=== PATIENT | female | born 1990 | race African-American/Black ===

== ENCOUNTER 2019-01-08 16:47 | Emergency (ER) | payer OTHER ==
[~2019-01-08] VITALS: Ht 157.5 cm; Wt 102.1 kg
[2019-01-08 16:55] VITALS: BP 143/88
[2019-01-08] MEDS ORDERED: SULF1TAB24 PO (17:20)
[2019-01-08] MEDS ORDERED: MELO7.5T29 PO (17:20)
[2019-01-08] MEDS ORDERED: TRAM50TA PO (17:20)
--- NOTE | 2019-01-08 17:21 | PHYS DOC ---
Past History Past Medical History: No Pertinent History Past Surgical History: No Surgical History Smoking: Non-smoker Alcohol Use: Occasionally Drug Use: None Adult General Chief Complaint Chief Complaint: SKIN RASH/ABSCESS HPI HPI Patient is a 28-year-old female presents complaining of left-sided arm pit pain and swelling. This has been going on for the past week. There has been no drainage. Patient has a history of similar issues under her left breast as well as in her hip region. No relief with [id number] ibuprofen and warm compresses. No fever. Increased pain with palpation as well as movement of the arm. No trauma. No drainage.[] Review of Systems Review of Systems Constitutional: Denies fever or chills [] Eyes: Denies change in visual acuity, redness, or eye pain [] HENT: Denies nasal congestion or sore throat [] Respiratory: Denies cough or shortness of breath [] Cardiovascular: No chest pain or palpitations[] GI: Denies abdominal pain, nausea, vomiting, bloody stools or diarrhea [] : Denies dysuria or hematuria [] Musculoskeletal: Denies back pain or joint pain [] Integument: See history of present illness[] Neurologic: Denies headache, focal weakness or sensory changes [] Endocrine: Denies polyuria or polydipsia [] All other systems were reviewed and found to be within normal limits, except as documented in this note. Physical Exam Physical Exam Constitutional: Well developed, well nourished, no acute distress, non-toxic appearance. [] HENT: Normocephalic, atraumatic, bilateral external ears normal, oropharynx moist, no oral exudates, nose normal. [] Eyes: PERRLA, EOMI, conjunctiva normal, no discharge. [] Neck: Normal range of motion, no tenderness, supple, no stridor. [] Cardiovascular:Heart rate regular rhythm, no murmur [] Lungs & Thorax: Bilateral breath sounds clear to auscultation [] Abdomen: Examined. [] Skin: Warm, dry, no erythema, induration of the left axilla approximately 5 cm x 3 cm. There is no drainable abscess, no fluctuance.. [] Back: No tenderness, no CVA tenderness. [] Extremities: No tenderness, no cyanosis, no clubbing, ROM intact, no edema. [] Neurologic: Alert and oriented X 3, normal motor function, normal sensory function, no focal deficits noted. [] Psychologic: Affect normal, judgement normal, mood normal. [] EKG EKG [] Radiology/Procedures Radiology/Procedures [] Course & Med Decision Making Course & Med Decision Making Pertinent Labs and Imaging studies reviewed. (See chart for details) Medical decision making: Patient appears to have cellulitis at this time, no drainable abscesses appreciated. Will start patient on oral antibiotics. She may need follow-up with surgery given the location within the axilla for possible hidradenitis suppurativa[] Dragon Disclaimer Dragon Disclaimer This electronic medical record was generated, in whole or in part, using a voice recognition dictation system. Departure Departure: Impression: Primary Impression: Cellulitis Disposition: HOME, SELF-CARE Condition: IMPROVED Referrals: VINCENZO LEGER (PCP) Follow-up in 2 days Patient Instructions: Cellulitis, Hidradenitis Suppurativa, Sweat Gland Abscess Additional Instructions: Follow-up with your regular doctor in 2 days. Apply warm compresses to the area at least 4 times a day for 15 minutes at a time. Take the medication as prescribed. Return to the ER if worsening discomfort or any other concerns. Scripts Tramadol Hcl (TRAMADOL HCL) 50 Mg Tablet 50 MG PO PRN Q6HRS PRN for PAIN, #20 TAB Prov: TAMEKA CAMPBELL DO 01/08/19 Meloxicam (MELOXICAM) 7.5 Mg Tablet 7.5 MG PO DAILY for PAIN, #20 TAB Prov: TAMEKA CAMPBELL DO 01/08/19 Sulfamethoxazole/Trimethoprim (BACTRIM DS TABLET) 1 Each Tablet 1 TAB PO BID for skin infection, #20 TAB Prov: TAMEKA CAMPBELL DO 01/08/19 Problem Qualifiers Primary Impression: Cellulitis Site of cellulitis: extremity Site of cellulitis of extremity: upper extremity Laterality: left Qualified Codes: L03.114 - Cellulitis of left upper limb TAMEKA CAMPBELL DO Jan 08, 2019 17:21
== END 2019-01-08 17:26 | disposition home or self-care (01) ==
LOC: ER 16:47
DX: L03.114 Cellulitis of left upper limb (principal)
CPT/HCPCS: 99283

== ENCOUNTER 2019-07-24 20:00 | Emergency (ER) | payer OTHER ==
[~2019-07-24] VITALS: Ht 160 cm; Wt 98.4 kg
[~2019-07-24 20:00] MED LIST: MELO7.5T29 PO; SULF1TAB24 PO; TRAM50TA PO
--- NOTE | 2019-07-24 20:04 | ED.ADGEN ---
Past History Past Medical History: No Pertinent History, GERD Past Medical History IUD Past Surgical History: No Surgical History Smoking: Non-smoker Alcohol Use: Occasionally Drug Use: None Adult General Chief Complaint Chief Complaint ".. I ve been hurting bad since 2;30 SAT. morning.. .. it just not gotten better..." HPI HPI Patient is a 28 year old female who presents with above hx and complaints generalized abd. pain. Nausea and Vomiting. Patient Follows at [facility]. No history of bad food. No history of travel. No family members have been overseas recently. No exposure to animals. History of trauma. Pain and vomiting started in epigastric and upper abdomen approximately 0100 hrs. On Thursday . The patient does have a history of GERD. Pain became acutely more severe tonight after eating pizza at 1800 hrs. Patient currently rates pain as 6 out of 10. Pain was 10 and then when her son jumped on the bed tonight. Patient no history of STDs. No current complaints of vaginal discharge. Review of Systems Review of Systems Constitutional: Denies fever or chills [] Eyes: Denies change in visual acuity, redness, or eye pain [] HENT: Denies nasal congestion or sore throat [] Respiratory: Denies cough or shortness of breath [] Cardiovascular: No additional information not addressed in HPI [] GI: Complaints of severe epigastric and abdominal pain, nausea, vomiting, . Denies bloody stools or diarrhea [] : Denies dysuria or hematuria [] Musculoskeletal: Denies back pain or joint pain [] Integument: Denies rash or skin lesions [] Neurologic: Denies headache, focal weakness or sensory changes [] Endocrine: Denies polyuria or polydipsia [] All other systems were reviewed and found to be within normal limits, except as documented in this note. Family History Family History Noncontributory presentation Current Medications Current Medications Current Medications Medications (Trade) Dose Ordered Sig/Nicole Start Time Stop Time Status Last Admin Dose Admin Ceftriaxone Sodium 1 gm/ Sodium Chloride 50 ml @ 100 mls/hr 1X ONCE 07/25/19 02:30 07/25/19 02:54 DC 07/25/19 02:00 100 MLS/HR Ceftriaxone Sodium (Rocephin Im) 1 gm 1X ONCE 07/25/19 01:00 07/25/19 01:01 DC Famotidine (Pepcid Vial) 20 mg 1X ONCE 07/24/19 22:00 07/24/19 22:01 DC 07/24/19 22:50 20 MG Info (Do NOT chart on this entry -- for MONITORING) 1 each PRN DAILY PRN 07/24/19 22:00 07/25/19 02:54 DC Iohexol (Omnipaque 240 Mg/ml) 30 ml 1X ONCE 07/24/19 22:00 07/24/19 22:01 DC 07/24/19 23:20 30 ML Iohexol (Omnipaque 300 Mg/ml) 75 ml 1X ONCE 07/24/19 22:00 07/24/19 22:01 DC 07/24/19 23:19 75 ML Lactated Ringer's 1,000 ml @ 1,000 mls/hr Q1H 07/24/19 22:00 07/24/19 22:59 DC 07/24/19 21:10 1,000 MLS/HR Metronidazole 100 ml @ 100 mls/hr 1X ONCE 07/25/19 01:00 07/25/19 01:59 DC 07/25/19 01:00 100 MLS/HR Morphine Sulfate (Morphine 10mg Syringe) 10 mg 1X ONCE 07/24/19 22:00 07/24/19 22:01 DC Multi-Ingredient Mouthwash/Gargle (Gi Cocktail) 20 ml 1X ONCE 07/24/19 22:00 07/24/19 22:01 DC 07/24/19 22:40 20 ML Ondansetron HCl (Zofran) 8 mg 1X ONCE 07/24/19 22:00 07/24/19 22:01 DC Allergies Allergies Allergies Coded Allergies Type Severity Reaction Last Updated Verified azithromycin Adverse Reaction Unknown gi upset 01/08/19 Yes Physical Exam Physical Exam Constitutional: Moderately acute distress, non-toxic appearance. [] HENT: Normocephalic, atraumatic, bilateral external ears normal, oropharynx moist, no oral exudates, nose normal. [] Eyes: PERRLA, EOMI, conjunctiva normal, no discharge. [] Neck: Normal range of motion, no tenderness, supple, no stridor. [] Cardiovascular:Heart rate regular rhythm, no murmur [] Lungs & Thorax: Bilateral breath sounds equal at apexes auscultation [] Abdomen: Bowel sounds normal, soft, normalized tenderness, no masses, no pulsatile masses. []Some rebound to right upper quadrant. Obese. Declined rectal exam at this time. Distended. Skin: Warm, dry, no erythema, no rash. [] Back: No tenderness, no CVA tenderness. [] Extremities: No tenderness, no cyanosis, no clubbing, ROM intact, no edema. [] No true psoas sign. Neurologic: Alert and oriented X 3, normal motor function, normal sensory function, no focal deficits noted. [] Psychologic: Affect anxious, judgement normal, mood normal. [] Current Patient Data Lab Results Laboratory Tests Test 07/24/19 20:15 07/24/19 20:36 07/24/19 21:10 Urine Collection Type Unknown Urine Color Yellow Urine Clarity Hazy Urine pH 5.0 Urine Specific Challenge >=1.030 Urine Protein Neg (NEG-TRACE) Urine Glucose (UA) Neg mg/dL (NEG) Urine Ketones (Stick) Neg mg/dL (NEG) Urine Blood Neg (NEG) Urine Nitrite Neg (NEG) Urine Bilirubin Neg (NEG) Urine Urobilinogen Dipstick 1 mg/dL (0.2 mg/dL) Urine Leukocyte Esterase Trace (NEG) Urine RBC 0 /HPF (0-2) Urine WBC 1-4 /HPF (0-4) Urine Squamous Epithelial Cells Occ /LPF Urine Bacteria Few /HPF (0-FEW) Urine Mucus Slight /LPF Urine Opiates Screen Neg (NEG) Urine Methadone Screen Neg (NEG) Urine Barbiturates Neg (NEG) Urine Phencyclidine Screen Neg (NEG) Urine Amphetamine/Methamphetamine Neg (NEG) Urine Benzodiazepines Screen Neg (NEG) Urine Cocaine Screen Neg (NEG) Urine Cannabinoids Screen Neg (NEG) Urine Ethyl Alcohol Neg (NEG) POC Urine HCG, Qualitative hcg negative (Negative) White Blood Count 6.5 x10^3/uL (4.0-11.0) Red Blood Count 4.14 x10^6/uL (3.50-5.40) Hemoglobin 11.9 g/dL (12.0-15.5) L Hematocrit 35.8 % (36.0-47.0) L Mean Corpuscular Volume 87 fL (79-100) Mean Corpuscular Hemoglobin 29 pg (25-35) Mean Corpuscular Hemoglobin Concent 33 g/dL (31-37) Red Cell Distribution Width 14.4 % (11.5-14.5) Platelet Count 354 x10^3/uL (140-400) Neutrophils (%) (Auto) 53 % (31-73) Lymphocytes (%) (Auto) 36 % (24-48) Monocytes (%) (Auto) 7 % (0-9) Eosinophils (%) (Auto) 4 % (0-3) H Basophils (%) (Auto) 1 % (0-3) Neutrophils # (Auto) 3.4 x10^3uL (1.8-7.7) Lymphocytes # (Auto) 2.3 x10^3/uL (1.0-4.8) Monocytes # (Auto) 0.4 x10^3/uL (0.0-1.1) Eosinophils # (Auto) 0.3 x10^3/uL (0.0-0.7) Basophils # (Auto) 0.1 x10^3/uL (0.0-0.2) Prothrombin Time 10.3 SEC (9.4-11.4) Prothrombin Time INR 1.0 (0.9-1.1) Activated Partial Thromboplast Time 28 SEC (23-33) Maternal Serum HCG Beta Subunit 1 mIU/mL (0-6) Sodium Level 141 mmol/L (136-145) Potassium Level 3.1 mmol/L (3.5-5.1) L Chloride Level 103 mmol/L (98-107) Carbon Dioxide Level 30 mmol/L (21-32) Anion Gap 8 (6-14) Blood Urea Nitrogen 13 mg/dL (7-20) Creatinine 0.8 mg/dL (0.6-1.0) Estimated GFR (Cockcroft-Gault) 104.1 Glucose Level 102 mg/dL (70-99) H Calcium Level 9.1 mg/dL (8.5-10.1) Total Bilirubin 0.2 mg/dL (0.2-1.0) Direct Bilirubin 0.1 mg/dL (0.0-0.2) Aspartate Amino Transferase (AST) 13 U/L (15-37) L Alanine Aminotransferase (ALT) 14 U/L (14-59) Alkaline Phosphatase 68 U/L (46-116) Creatine Kinase 56 U/L (26-192) Troponin I Quantitative < 0.017 ng/mL (0-0.055) Total Protein 7.7 g/dL (6.4-8.2) Albumin 3.2 g/dL (3.4-5.0) L Amylase Level 99 U/L (25-115) Lipase 60 U/L (73-393) L EKG EKG [] Radiology/Procedures Radiology/Procedures [address] [address] IMAGING REPORT Signed PATIENT: ANN COREA ACCOUNT: [id number] : 1990 LOCATION: ER AGE: 28 SEX: F EXAM STATUS: REG ER ORD. PHYSICIAN: TORIBIO GUTIERREZ MD REASON: pain, n/v, family hx gall bladder, OMNI 300,75ml & OMNI 240,30ml PROCEDURE: CT ABD PELV W/ORAL&IV CONTRAST CT SCAN OF THE ABDOMEN AND PELVIS WITH IV CONTRAST. History: Nausea vomiting and pain Comparison:None. Procedure: Contiguous axial images of the abdomen and pelvis were performed after the administration of 75 cc of Omni 240 IV contrast. Oral contrast: Yes. Findings: Liver: Unremarkable Spleen: Unremarkable Pancreas: Unremarkable Adrenal Glands: Unremarkable Kidneys: Unremarkable There is no free air. There is no free fluid. The urinary bladder appears normal. The appendix is not well seen. There are multiple small borderline size mesenteric lymph nodes on the right. There is an IUD within the uterus. The ovaries appear within normal limits. Impression: Minimal mesenteric lymph nodes in the right could be lymphadenitis. PQRS Compliance Statement: One or more of the following individualized dose reduction techniques were utilized for this examination: 1. Automated exposure control 2. Adjustment of the mA and/or kV according to patient size 3. Use of iterative reconstruction technique Electronically signed by: Frieda Ivan III, MD (07/24/2019 11:50 PM) [facility] DICTATED AND SIGNED BY: FRIEDA IVAN III, MD DATE: 07/24/19 5110 CC: TORIBIO GUTIERREZ MD; KENDRA ESTRADA DO ~ [][address] [address] IMAGING REPORT Signed PATIENT: ANN COREA ACCOUNT: [id number] : 1990 LOCATION: ER AGE: 28 SEX: F EXAM STATUS: PRE ER ORD. PHYSICIAN: TORIBIO GUTIERREZ MD REASON: pain, N/V, X 1 DAY PROCEDURE: ACUTE ABDOMEN SERIES Exam: Acute abdominal series INDICATION: Pain TECHNIQUE: Frontal view of the chest with upright and supine views of the abdomen Comparisons: None FINDINGS: The cardiomediastinal silhouette and pulmonary vessels are within normal limits. The lung and pleural spaces are clear. Air and stool are noted throughout the colon to level of the rectum in a nonobstructive bowel gas pattern. Large amount stool is noted throughout the colon. IUD is noted within the pelvis. IMPRESSION: 1. No acute cardiopulmonary process. 2. Large amount stool within the colon. Nonobstructive bowel gas pattern. Electronically signed by: Dieter Montgomery MD (07/24/2019 11:01 PM) [facility] DICTATED AND SIGNED BY: IDETER MONTGOMERY MD DATE: 07/24/192300 CC: TORIBIO GUTIERREZ MD; KENDRA ESTRADA DO ~ Course & Med Decision Making Course & Med Decision Making Pertinent Labs and Imaging studies reviewed. (See chart for details) Patient's stay on a clear fluid diet only 48 hours. No solids or milk products. Push fluids. Take Tylenol and ibuprofen for pain for marked discomfort may take Vicoprofen up 4 times a day. May take Zofran 8 mg up 4 times a day for nausea and vomiting. Patient did do a course of Keflex 500 -3 times a day and Flagyl 500 mg 3 times a day. Patient follow-up primary care. If persistent pain or any concerns return. Informed patient may need EGD and colonoscopy to evaluate for colitis. Discussed differential diagnosis for mesenteric adenitis. Patient follow-up primary care review ED work up. [] Final Impression Final Impression 1. Abdomen Pain 2. Anemia 11.9 3. Mesenteric Adenitis[] 4. Constipation Dragon Disclaimer Dragon Disclaimer This electronic medical record was generated, in whole or in part, using a voice recognition dictation system. Dragon Disclaimer This chart was dictated in whole or in part using Voice Recognition software in a busy, high-work load, and often noisy Emergency Department environment. It may contain unintended and wholly unrecognized errors or omissions. TORIBIO GUTIERREZ MD Jul 24, 2019 20:04
[2019-07-24 20:57] LABS: BARBITURATES NEG (NEG); BENZODIAZEPINES NEG (NEG); CANNABINOIDS NEG (NEG); COCAINE NEG (NEG); METHADONE NEG (NEG); OPIATES NEG (NEG); PHENCYCLIDINE NEG (NEG)
[2019-07-24 21:01] LABS: AMPHETAMINE/METHAMPHETAMINE NEG (NEG)
[2019-07-24 21:14] LABS: CLARITY,URINE HAZY; COLOR,URINE YELLOW
[2019-07-24 21:15] LABS: BACTERIA,URINE FEW /HPF (0-FEW); BILIRUBIN,URINE NEG (NEG); GLUCOSE,URINE NEG (NEG); NITRITE,URINE NEG (NEG); RBC,URINE 0 /HPF (0-2); SQUAMOUS EPITHELIAL CELL,UR OCC /LPF; UROBILINOGEN,URINE 1 mg/dL (0.2 mg/dL)
[2019-07-24] MEDS ORDERED: LIDO:MAALOX 1:1 20 ML SINGLE DOSE. PO ONE (22:00)
[2019-07-24] MEDS ORDERED: IOHEXOL 300 MG/ML 75 ML VIAL. IV ONE (22:00)
[2019-07-24] MEDS ORDERED: ONDANSETRON PF 4 MG/2 ML VIAL. IVP ONE (22:00)
[2019-07-24] MEDS ORDERED: MORPHINE SULFATE 10 MG/ML SYRINGE. SQ ONE ×2 (22:00)
[2019-07-24] MEDS ORDERED: CONTRAST GIVEN MC PRN (22:00)
[2019-07-24] MEDS ORDERED: FAMOTIDINE 20 MG/2 ML VIAL IVP ONE (22:00)
[2019-07-24] MEDS ORDERED: IOHEXOL 240 MG/ML 50ML VIAL. PO ONE (22:00)
[2019-07-24] MEDS ORDERED: IV RINGERS SOLUTION,LACTATED 1,000 ML IV SCH (22:00)
[2019-07-24 22:13] LABS: BASO # 0.1 x10^3/uL (0.0-0.2); BASO % 1 % (0-3); EOS # 0.3 x10^3/uL (0.0-0.7); EOS % 4 % (0-3); HEMATOCRIT 35.8 % (36.0-47.0); HEMOGLOBIN 11.9 g/dL (12.0-15.5); LYMPH # 2.3 x10^3/uL (1.0-4.8); LYMPH % 36 % (24-48); MEAN CORPUSCULAR HEMOGLOBIN 29 pg (25-35); MEAN CORPUSCULAR HGB CONC 33 g/dL (31-37); MEAN CORPUSCULAR VOLUME 87 fL (79-100); MONO # 0.4 x10^3/uL (0.0-1.1); MONO % 7 % (0-9); NEUT # 3.4 x10^3uL (1.8-7.7); NEUT % 53 % (31-73); PLATELET COUNT 354 x10^3/uL (140-400); RED BLOOD COUNT 4.14 x10^6/uL (3.50-5.40); RED CELL DISTRIBUTION WIDTH 14.4 % (11.5-14.5); WHITE BLOOD COUNT 6.5 x10^3/uL (4.0-11.0)
[2019-07-24 22:25] LABS: ALBUMIN 3.2 g/dL (3.4-5.0); CALCIUM 9.1 mg/dL (8.5-10.1); CREATININE 0.8 mg/dL (0.6-1.0); DIRECT BILIRUBIN 0.1 mg/dL (0.0-0.2); GFR 104.1; POTASSIUM 3.1 mmol/L (3.5-5.1); TOTAL BILIRUBIN 0.2 mg/dL (0.2-1.0); TOTAL PROTEIN 7.7 g/dL (6.4-8.2)
--- NOTE | 2019-07-24 23:04 | RAD ---
Exam: Acute abdominal series INDICATION: Pain TECHNIQUE: Frontal view of the chest with upright and supine views of the abdomen Comparisons: None FINDINGS: The cardiomediastinal silhouette and pulmonary vessels are within normal limits. The lung and pleural spaces are clear. Air and stool are noted throughout the colon to level of the rectum in a nonobstructive bowel gas pattern. Large amount stool is noted throughout the colon. IUD is noted within the pelvis. IMPRESSION: 1. No acute cardiopulmonary process. 2. Large amount stool within the colon. Nonobstructive bowel gas pattern. Electronically signed by: Dieter Jones MD (07/24/2019 11:01 PM) [facility]
--- NOTE | 2019-07-24 23:53 | RAD ---
CT SCAN OF THE ABDOMEN AND PELVIS WITH IV CONTRAST. History: Nausea vomiting and pain Comparison:None. Procedure: Contiguous axial images of the abdomen and pelvis were performed after the administration of 75 cc of Omni 240 IV contrast. Oral contrast: Yes. Findings: Liver: Unremarkable Spleen: Unremarkable Pancreas: Unremarkable Adrenal Glands: Unremarkable Kidneys: Unremarkable There is no free air. There is no free fluid. The urinary bladder appears normal. The appendix is not well seen. There are multiple small borderline size mesenteric lymph nodes on the right. There is an IUD within the uterus. The ovaries appear within normal limits. Impression: Minimal mesenteric lymph nodes in the right could be lymphadenitis. PQRS Compliance Statement: One or more of the following individualized dose reduction techniques were utilized for this examination: 1. Automated exposure control 2. Adjustment of the mA and/or kV according to patient size 3. Use of iterative reconstruction technique Electronically signed by: Deniz Yen III, MD (07/24/2019 11:50 PM) [facility]
[2019-07-25] MEDS ORDERED: METR500T PO (00:47)
[2019-07-25] MEDS ORDERED: CEPH-264 PO (00:47)
[2019-07-25] MEDS ORDERED: ONDA8TAB9 PO (00:47)
[2019-07-25] MEDS ORDERED: HYDR-1179 PO (00:47)
[2019-07-25] MEDS ORDERED: cefTRIAXone IM 1 GM VIAL IM ONE (01:00)
[2019-07-25 02:35] VITALS: BP 127/75
== END 2019-07-25 02:50 | disposition home or self-care (01) ==
LOC: ER 20:00
DX: D64.9 Anemia, unspecified (principal); I88.0 Nonspecific mesenteric lymphadenitis; K59.00 Constipation, unspecified; K21.9 Gastro-esophageal reflux disease without esophagitis; Z88.1 Allergy status to other antibiotic agents; R11.2 Nausea with vomiting, unspecified
CPT/HCPCS: 36415; 74022; 74177; 80048; 80076; 80307; 81001; 81025; 82150; 82550; 83690; 84484; 84702; 85025; 85610; 85730; 87086; 96361; 96365; 96367; 96375; 99285; J0696; J3490; J7120; Q9966; Q9967

== ENCOUNTER 2019-10-29 06:40 | Emergency (ER) | payer OTHER ==
[~2019-10-29] VITALS: Ht 160 cm; Wt 94.0 kg
[2019-10-29 06:40] VITALS: BP 133/82
[~2019-10-29 06:40] MED LIST changes: +CEPH-264 PO; +HYDR-1179 PO; +METR500T PO; +ONDA8TAB9 PO
--- NOTE | 2019-10-29 07:10 | PHYS DOC ---
Past History Past Medical History: No Pertinent History, GERD Past Surgical History: No Surgical History Smoking: Non-smoker Alcohol Use: Occasionally Drug Use: None Adult General Chief Complaint Chief Complaint: Fever, cough HPI HPI 28 yo female presents with cough, fever up to 102 and body aches for the last 2 days. It is actually in less than 48 hours. The patient was feeling normal before this. She had a mild scratchy throat, but no cough or fever. She is most concerned with the fatigue and generalized aching that she feels right now. She knows that it is flu season and she is concerned about influenza. She denies significant shortness of breath. She denies chest pain, nausea, vomiting, diarrhea. Review of Systems Review of Systems Constitutional: Fever, body aches[] Eyes: Denies change in visual acuity, redness, or eye pain [] HENT: Denies nasal congestion or sore throat [] Respiratory: Cough without shortness of breath [] Cardiovascular: No additional information not addressed in HPI [] GI: Denies abdominal pain, nausea, vomiting, bloody stools or diarrhea [] : Denies dysuria or hematuria [] Musculoskeletal: Denies back pain or joint pain [] Integument: Denies rash or skin lesions [] Neurologic: Denies headache, focal weakness or sensory changes [] Endocrine: Denies polyuria or polydipsia [] All other systems were reviewed and found to be within normal limits, except as documented in this note. Allergies Allergies Allergies Coded Allergies Type Severity Reaction Last Updated Verified azithromycin Adverse Reaction Unknown gi upset 01/08/19 Yes Physical Exam Physical Exam Constitutional: Well developed, well nourished, no acute distress, non-toxic appearance. [] HENT: Normocephalic, atraumatic, bilateral external ears normal, oropharynx moist, no oral exudates, nose congested. [] Eyes: PERRLA, EOMI, conjunctiva normal, no discharge. [] Neck: Normal range of motion, no tenderness, supple, no stridor. [] Cardiovascular: Heart rate regular rhythm, no murmur [] Lungs & Thorax: Bilateral breath sounds clear to auscultation [] Abdomen: Bowel sounds normal, soft, no tenderness, no masses, no pulsatile masses. [] Skin: Warm, dry, no erythema, no rash. [] Back: No tenderness, no CVA tenderness. [] Extremities: No tenderness, no cyanosis, no clubbing, ROM intact, no edema. [] Neurologic: Alert and oriented X 3, normal motor function, normal sensory function, no focal deficits noted. [] Psychologic: Affect normal, judgement normal, mood normal. [] EKG EKG [] Radiology/Procedures Radiology/Procedures [] Course & Med Decision Making Course & Med Decision Making Pertinent Labs and Imaging studies reviewed. (See chart for details) The patient's influenza and rapid strep are negative. This appears to be a viral illness other than influenza. I have advised supportive care suggesting well- hydrated, getting rest in the, and taking Tylenol or ibuprofen for fever.. She is stable for discharge at this time. [] Dragon Disclaimer Dragon Disclaimer This electronic medical record was generated, in whole or in part, using a voice recognition dictation system. Departure Departure: Impression: Primary Impression: Viral URI with cough Disposition: 01 HOME, SELF-CARE Condition: STABLE Referrals: KENDRA ESTRADA DO (PCP) Patient Instructions: Upper Respiratory Infection, Adult, [id number] PATRICK NELSON DO Oct 29, 2019 07:10
[2019-10-29 07:49] LABS: INFLUENZA A PATIENT NEGATIVE (NEGATIVE); INFLUENZA B PATIENT NEGATIVE (NEGATIVE)
== END 2019-10-29 08:20 | disposition home or self-care (01) ==
LOC: ER 06:40
DX: J06.9 Acute upper respiratory infection, unspecified (principal); B97.89 Other viral agents as the cause of diseases classified elsewhere; K21.9 Gastro-esophageal reflux disease without esophagitis; Z88.1 Allergy status to other antibiotic agents
CPT/HCPCS: 87070; 87804; 87880; 99284